=== PATIENT | male | born 1970 | race Two or more races ===

== ENCOUNTER → 2017-08-11 | Outpatient (CLI) | payer SELFPAY ==
--- NOTE | 2017-08-11 15:43 | REP ---
Right shoulder series, complete, 08/11/2017. Clinical history. Acute pain of the right shoulder. No trauma. Multiple views provided. There is soft tissue calcification adjacent to the greater tuberosity of the humeral head consistent with calcific tendonitis/calcific bursitis. Minor AC and glenohumeral joint degenerative spurs inferiorly. There is no widening of the AC joint or elevation of clavicle. No fracture, subluxation or other focal lesion. Scapula, ribs and humerus without focal lesion. Impression: 1. Calcific tendinopathy, calcific bursitis of the greater tuberosity humeral head. 2. Degenerative changes AC and glenohumeral joint without other significant finding. Signed by Chris Miller MD 08/11/2017 08:34 P
== END ==
LOC: M LRY 12:43
PROVIDERS: ATTEND Nurse Practitioner Family
DX: M19.011 Primary osteoarthritis, right shoulder (principal)